=== PATIENT | female | born 1970 | race Asian ===

== ENCOUNTER → 2023-08-13 | Outpatient (CLI) | payer BC ==
[~2023-08-13] MED LIST: IRON FERROUS S325 MG PO; MOTRIN 600600 MG/TAB PO; PRENATAL1 TA3 PO; SENOKOT S 50 MG1 TAB PO
== END ==
LOC: MC.RAD 15:21
DX: Z12.31 Encounter for screening mammogram for malignant neoplasm of breast (principal)